=== PATIENT | male | born 1955 | race African-American/Black ===

== ENCOUNTER 2022-04-19 09:08 | Inpatient (IN) | payer MEDICAID, OTHER ==
[~2022-04-19] VITALS: Ht 175.3 cm; Wt 130.0 kg
[2022-04-19] MEDS ORDERED: ACETAMINOPHEN 325 MG TAB PO ONE (09:30)
[2022-04-19] MEDS ORDERED: cefTRIAXone SOD 500 MG VL IV ONE (09:30)
[2022-04-19] MEDS ORDERED: IPRATROPIUM BROM 0.5 MG/2.5ML INH SOL NEB ONE (09:30)
[2022-04-19] MEDS ORDERED: ALBUTEROL SULF 2.5 MG/0.5ML(0.5%) NEB SOLN NEB ONE (09:30)
[2022-04-19 10:15] LABS: Albumin 3.8 g/dL (3.4-5.0); Calcium 9.1 mg/dL (8.5-10.1); Potassium 3.8 mmol/L (3.5-5.1)
[2022-04-19 10:18] LABS: BUN/Creatinine Ratio 10.5; Bilirubin, Total 0.5 mg/dL (0.2-1.0)
[2022-04-19 10:23] LABS: Basophils # (auto) 0.1 10 ^3/uL (0-0.2); Basophils % (auto) 0.5 % (0.0-2.0); Eosinophils # (auto) 0 10 ^3/uL (0-0.8); Hematocrit 50.3 % (41.0-53.0); Hemoglobin 16.3 g/dL (13.5-17.5); INR 1.01 (0.9-1.15); Lymphocytes # (auto) 1.5 10 ^3/uL (0.4-5.4); Lymphocytes % (auto) 14.1 % (10.0-50.0); Mean Corpuscular Hemoglobin 28.4 pg (28.0-32.0); Mean Corpuscular Hgb Conc. 32.4 g/dL (32.0-36.0); Mean Corpuscular Volume 87.4 fL (80.0-100.0); Monocytes # (auto) 1.7 10 ^3/uL (0-1.3); Monocytes % (auto) 16.3 % (0.0-12.0); Neutrophils # (auto) 7.1 10 ^3/uL (1.6-8.6); Neutrophils % (auto) 69.1 % (37.0-80.0); Nucleated Red Blood Cells % 0.3 %; Red Blood Cells 5.76 10^6/uL (4.5-5.90); Red Cell Distribution Width 15.3 % (11.8-14.3); White Blood Cell 10.3 10^3/uL (4.4-10.8)
[2022-04-19] MEDS ORDERED: CEFTRIAXONE SODIUM 2 GM in D5W 5% 50 ML IV ONE (11:30)
[2022-04-19] MEDS ORDERED: ASPI-325 PO (21:22)
[2022-04-19] MEDS ORDERED: METO-289 PO (21:22)
[2022-04-19] MEDS ORDERED: LURA40TA PO (21:22)
[2022-04-19] MEDS ORDERED: FUR20T PO (21:22)
[2022-04-19] MEDS ORDERED: GABA400C11 PO (21:22)
[2022-04-19] MEDS ORDERED: TAMS0.4C36 PO (21:22)
[2022-04-19] MEDS ORDERED: TRAZ100T3 PO (21:22)
[2022-04-19] MEDS ORDERED: ONDANSETRON HCL 4 MG/2 ML VIAL IV PRN (21:30)
[2022-04-19] MEDS ORDERED: MORPHINE SULFATE INJ 2 MG/ml SYRG IV PRN (21:30)
[2022-04-19] MEDS ORDERED: NITROGLYCERIN 0.4 MG SL TAB SL PRN (21:30)
[2022-04-19] MEDS ORDERED: DOCUSATE SOD 100 MG CAP PO PRN (21:30)
[2022-04-19] MEDS: GABAPENTIN 400 MG CAP PO SCH (22:22)
[2022-04-19] MEDS ORDERED: SODIUM CHLORIDE 0.9% 1,000 ML IV ONE (22:45)
[2022-04-19 23:07] VITALS: BP 137/80
[2022-04-20 00:27] VITALS: BP 161/108
[2022-04-20] MEDS: hydrALAZINE HCL 20 MG/ML VL IV PRN ×2 (01:25→18:16)
[2022-04-20] MEDS: traZODone HCL 50 MG TAB PO PRN (02:04)
[2022-04-20] MEDS ORDERED: amLODIPine BESYLATE 5 MG TAB PO ONE (04:45)
[2022-04-20 05:54] LABS: Basophils # (auto) 0 10 ^3/uL (0-0.2); Basophils % (auto) 0.4 % (0.0-2.0); Eosinophils # (auto) 0 10 ^3/uL (0-0.8); Eosinophils % (auto) 0.1 % (0.0-7.0); Hematocrit 50.1 % (41.0-53.0); Hemoglobin 16.4 g/dL (13.5-17.5); Lymphocytes # (auto) 2.3 10 ^3/uL (0.4-5.4); Lymphocytes % (auto) 20.3 % (10.0-50.0); Mean Corpuscular Hemoglobin 28.4 pg (28.0-32.0); Mean Corpuscular Hgb Conc. 32.7 g/dL (32.0-36.0); Monocytes # (auto) 2.1 10 ^3/uL (0-1.3); Monocytes % (auto) 17.9 % (0.0-12.0); Neutrophils % (auto) 61.3 % (37.0-80.0); Nucleated Red Blood Cells % 0.3 %; Red Blood Cells 5.76 10^6/uL (4.5-5.90); Red Cell Distribution Width 15.5 % (11.8-14.3); White Blood Cell 11.5 10^3/uL (4.4-10.8)
[2022-04-20] MEDS ORDERED: ALBUTEROL SULF 2.5 MG/0.5ML(0.5%) NEB SOLN NEB SCH (06:00)
[2022-04-20] MEDS ORDERED: IPRATROPIUM BROM 0.5 MG/2.5ML INH SOL NEB SCH (06:00)
[2022-04-20 06:09] LABS: Potassium 3.9 mmol/L (3.5-5.1)
[2022-04-20] MEDS: GABAPENTIN 400 MG CAP PO SCH ×3 (06:09→21:35)
[2022-04-20 06:13] LABS: Albumin 3.6 g/dL (3.4-5.0); BUN/Creatinine Ratio 10.3; Calcium 9.2 mg/dL (8.5-10.1)
[2022-04-20 06:16] LABS: Bilirubin, Total 0.6 mg/dL (0.2-1.0); Total Protein 7.8 g/dL (6.4-8.2)
[2022-04-20] MEDS: cloNIDine HCL 0.1 MG TAB PO PRN ×2 (06:45→16:55)
[2022-04-20] MEDS: methylPREDNISolone SOD SUCC 40 MG/ML VL IV SCH ×2 (08:44→21:35)
[2022-04-20] MEDS: PANTOPRAZOLE 40 MG/10 ML VIAL INJ IV SCH (08:44)
[2022-04-20] MEDS: cefTRIAXone 1GM/50ML D5W 50 ML IV SCH (08:44)
[2022-04-20] MEDS: ACETAMINOPHEN 325 MG TAB PO PRN (08:45)
[2022-04-20] MEDS: FUROSEMIDE 20 MG TAB PO SCH (08:46)
[2022-04-20] MEDS: amLODIPine BESYLATE 5 MG TAB PO SCH (08:46)
[2022-04-20] MEDS: METOPROLOL SUCCINATE XL 50 MG TAB PO SCH (08:46)
[2022-04-20 09:00] VITALS: BP 155/103
[2022-04-20] MEDS: ASPirin-EC 81 mg tab PO SCH (09:42)
[2022-04-20] MEDS: LURASIDONE PO SCH (10:00)
[2022-04-20] MEDS: [UNRECOGNIZED DRUG - OTHER] PO SCH (10:00)
[2022-04-20 13:00] VITALS: BP 142/94
[2022-04-20] MEDS: ALBUTEROL SULF 2.5 MG/0.5ML(0.5%) NEB SOLN NEB SCH ×3 (14:00→22:28)
[2022-04-20] MEDS: IPRATROPIUM BROM 0.5 MG/2.5ML INH SOL NEB SCH ×3 (14:00→22:28)
[2022-04-20] MEDS ORDERED: MAGNESIUM SULFATE 1GM/100ML 100 ML IV ONE (14:00)
[2022-04-20] MEDS: TAMSULOSIN HYDROCHLORIDE 0.4 MG CAP PO SCH (16:58)
[2022-04-20 17:00] VITALS: BP 166/103
[2022-04-20 22:00] VITALS: BP 149/79
[2022-04-21] MEDS: HYDROcodone-ACET 5/325MG TAB PO PRN ×3 (02:36→23:23)
[2022-04-21 05:00] VITALS: BP 113/78
[2022-04-21] MEDS: GABAPENTIN 400 MG CAP PO SCH ×3 (05:27→22:15)
[2022-04-21] MEDS: ALBUTEROL SULF 2.5 MG/0.5ML(0.5%) NEB SOLN NEB SCH ×5 (06:08→21:39)
[2022-04-21] MEDS: IPRATROPIUM BROM 0.5 MG/2.5ML INH SOL NEB SCH ×5 (06:09→21:39)
[2022-04-21 07:22] LABS: Basophils # (auto) 0 10 ^3/uL (0-0.2); Basophils % (auto) 0.4 % (0.0-2.0); Eosinophils # (auto) 0 10 ^3/uL (0-0.8); Hematocrit 48.3 % (41.0-53.0); Hemoglobin 15.6 g/dL (13.5-17.5); Lymphocytes # (auto) 1.9 10 ^3/uL (0.4-5.4); Lymphocytes % (auto) 20.4 % (10.0-50.0); Mean Corpuscular Hemoglobin 28.2 pg (28.0-32.0); Mean Corpuscular Hgb Conc. 32.3 g/dL (32.0-36.0); Mean Corpuscular Volume 87.3 fL (80.0-100.0); Monocytes # (auto) 0.7 10 ^3/uL (0-1.3); Monocytes % (auto) 7.4 % (0.0-12.0); Neutrophils # (auto) 6.7 10 ^3/uL (1.6-8.6); Neutrophils % (auto) 71.8 % (37.0-80.0); Red Blood Cells 5.54 10^6/uL (4.5-5.90); Red Cell Distribution Width 15.1 % (11.8-14.3); White Blood Cell 9.4 10^3/uL (4.4-10.8)
[2022-04-21 08:05] LABS: Calcium 9.3 mg/dL (8.5-10.1); Potassium 4.5 mmol/L (3.5-5.1)
[2022-04-21 09:00] VITALS: BP 153/92
[2022-04-21] MEDS: LURASIDONE PO SCH (10:00)
[2022-04-21] MEDS: [UNRECOGNIZED DRUG - OTHER] PO SCH (10:00)
[2022-04-21] MEDS: METOPROLOL SUCCINATE XL 50 MG TAB PO SCH (10:31)
[2022-04-21] MEDS: amLODIPine BESYLATE 5 MG TAB PO SCH (10:32)
[2022-04-21] MEDS: cefTRIAXone 1GM/50ML D5W 50 ML IV SCH (10:32)
[2022-04-21] MEDS: PANTOPRAZOLE 40 MG/10 ML VIAL INJ IV SCH (10:32)
[2022-04-21] MEDS: FUROSEMIDE 20 MG TAB PO SCH (10:32)
[2022-04-21] MEDS: methylPREDNISolone SOD SUCC 40 MG/ML VL IV SCH ×2 (10:33→22:14)
[2022-04-21] MEDS: ASPirin-EC 81 mg tab PO SCH (10:45)
[2022-04-21] MEDS ORDERED: METF-370 PO (10:47)
[2022-04-21 13:00] VITALS: BP 151/94
[2022-04-21] MEDS: SODIUM CHLORIDE 0.9% 1,000 ML IV SCH (16:44)
[2022-04-21 17:00] VITALS: BP 145/93
[2022-04-21] MEDS: TAMSULOSIN HYDROCHLORIDE 0.4 MG CAP PO SCH (17:11)
[2022-04-21] MEDS ORDERED: ALBUTEROL MEDNEB 2.5 mg/3ml NEB ONE ×2 (18:01→21:36)
[2022-04-21 22:00] VITALS: BP 156/93
[2022-04-21] MEDS: traZODone HCL 50 MG TAB PO PRN (22:24)
[2022-04-22 05:04] VITALS: BP 168/101
[2022-04-22] MEDS: SODIUM CHLORIDE 0.9% 1,000 ML IV SCH (05:25)
[2022-04-22] MEDS: GABAPENTIN 400 MG CAP PO SCH ×3 (05:28→21:21)
[2022-04-22] MEDS: cloNIDine HCL 0.1 MG TAB PO PRN ×2 (05:58→21:22)
[2022-04-22 06:06] LABS: Basophils # (auto) 0.1 10 ^3/uL (0-0.2); Basophils % (auto) 0.4 % (0.0-2.0); Eosinophils # (auto) 0 10 ^3/uL (0-0.8); Hematocrit 48.9 % (41.0-53.0); Hemoglobin 15.7 g/dL (13.5-17.5); Lymphocytes # (auto) 1.6 10 ^3/uL (0.4-5.4); Mean Corpuscular Hemoglobin 27.9 pg (28.0-32.0); Mean Corpuscular Volume 87.2 fL (80.0-100.0); Monocytes # (auto) 0.9 10 ^3/uL (0-1.3); Monocytes % (auto) 7.2 % (0.0-12.0); Neutrophils # (auto) 10.6 10 ^3/uL (1.6-8.6); Neutrophils % (auto) 80.4 % (37.0-80.0); Nucleated Red Blood Cells % 0.2 %; Red Blood Cells 5.61 10^6/uL (4.5-5.90); Red Cell Distribution Width 14.9 % (11.8-14.3); White Blood Cell 13.1 10^3/uL (4.4-10.8)
[2022-04-22] MEDS ORDERED: ALBUTEROL MEDNEB 2.5 mg/3ml NEB ONE ×5 (06:10→22:00)
[2022-04-22 06:29] LABS: Potassium 4.3 mmol/L (3.5-5.1)
[2022-04-22 06:33] LABS: BUN/Creatinine Ratio 19.2; Calcium 9.2 mg/dL (8.5-10.1)
[2022-04-22] MEDS: IPRATROPIUM BROM 0.5 MG/2.5ML INH SOL NEB SCH ×5 (06:54→22:02)
[2022-04-22] MEDS: ALBUTEROL SULF 2.5 MG/0.5ML(0.5%) NEB SOLN NEB SCH ×5 (06:54→22:02)
[2022-04-22 08:00] VITALS: BP 140/96
[2022-04-22 09:00] VITALS: BP 140/96
[2022-04-22] MEDS: cefTRIAXone 1GM/50ML D5W 50 ML IV SCH (09:30)
[2022-04-22] MEDS: ASPirin-EC 81 mg tab PO SCH (09:30)
[2022-04-22] MEDS: methylPREDNISolone SOD SUCC 40 MG/ML VL IV SCH ×2 (09:30→21:21)
[2022-04-22] MEDS: PANTOPRAZOLE 40 MG/10 ML VIAL INJ IV SCH (09:30)
[2022-04-22] MEDS: FUROSEMIDE 20 MG TAB PO SCH (09:31)
[2022-04-22] MEDS: METOPROLOL SUCCINATE XL 50 MG TAB PO SCH (09:31)
[2022-04-22] MEDS: amLODIPine BESYLATE 5 MG TAB PO SCH (09:32)
[2022-04-22] MEDS: LURASIDONE PO SCH (10:00)
[2022-04-22] MEDS: [UNRECOGNIZED DRUG - OTHER] PO SCH (10:00)
[2022-04-22 12:41] VITALS: BP 138/78
[2022-04-22] MEDS: AZITHROMYCIN 500MG/ 250ML 250 ML IV SCH (12:57)
[2022-04-22 13:00] VITALS: BP 141/93
[2022-04-22 14:48] LABS: Hepatitis C Antibody Negative (Negative)
[2022-04-22 17:00] VITALS: BP 147/99
[2022-04-22] MEDS: TAMSULOSIN HYDROCHLORIDE 0.4 MG CAP PO SCH (17:55)
[2022-04-22] MEDS: traZODone HCL 50 MG TAB PO PRN (22:20)
[2022-04-23 04:42] VITALS: BP 155/91
[2022-04-23] MEDS: hydrALAZINE HCL 20 MG/ML VL IV PRN ×2 (05:46→12:09)
[2022-04-23] MEDS: GABAPENTIN 400 MG CAP PO SCH ×2 (05:46→13:44)
[2022-04-23] MEDS ORDERED: ALBUTEROL MEDNEB 2.5 mg/3ml NEB ONE (06:14)
[2022-04-23] MEDS: ALBUTEROL SULF 2.5 MG/0.5ML(0.5%) NEB SOLN NEB SCH ×3 (07:01→14:54)
[2022-04-23] MEDS: IPRATROPIUM BROM 0.5 MG/2.5ML INH SOL NEB SCH ×3 (07:01→14:53)
[2022-04-23 09:00] VITALS: BP 150/91
[2022-04-23] MEDS: PANTOPRAZOLE 40 MG/10 ML VIAL INJ IV SCH (09:05)
[2022-04-23] MEDS: cefTRIAXone 1GM/50ML D5W 50 ML IV SCH (09:05)
[2022-04-23] MEDS: methylPREDNISolone SOD SUCC 40 MG/ML VL IV SCH (09:06)
[2022-04-23] MEDS: ASPirin-EC 81 mg tab PO SCH (09:06)
[2022-04-23] MEDS: amLODIPine BESYLATE 5 MG TAB PO SCH (09:06)
[2022-04-23] MEDS: LURASIDONE PO SCH (09:06)
[2022-04-23] MEDS: FUROSEMIDE 20 MG TAB PO SCH (09:06)
[2022-04-23] MEDS: [UNRECOGNIZED DRUG - OTHER] PO SCH (09:06)
[2022-04-23] MEDS: METOPROLOL SUCCINATE XL 50 MG TAB PO SCH (09:07)
[2022-04-23] MEDS: AZITHROMYCIN 500MG/ 250ML 250 ML IV SCH (09:35)
[2022-04-23] MEDS: ACETAMINOPHEN 325 MG TAB PO PRN (12:00)
[2022-04-23 13:00] VITALS: BP 154/93
[2022-04-23] MEDS ORDERED: PRED20TA2 PO (13:19)
[2022-04-23] MEDS ORDERED: DOXY-332 PO (13:21)
[2022-04-23 16:46] VITALS: BP 149/93
== END 2022-04-23 16:09 | disposition home health service (06) | DRG 720 ==
LOC: EDBD 09:08 → ER 09:15 → TELE 21:17 → TELE-CENTR 23:28
PROVIDERS: ADMIT Nurse Practitioner Family; ATTEND Nurse Practitioner Acute Care
DX: A41.9 Sepsis, unspecified organism (principal); J96.01 Acute respiratory failure with hypoxia; N17.9 Acute kidney failure, unspecified; J15.9 Unspecified bacterial pneumonia; I11.0 Hypertensive heart disease with heart failure; J44.0 Chronic obstructive pulmonary disease with (acute) lower respiratory infection; I50.9 Heart failure, unspecified; J45.901 Unspecified asthma with (acute) exacerbation; E11.9 Type 2 diabetes mellitus without complications; E66.01 Morbid (severe) obesity due to excess calories; F31.9 Bipolar disorder, unspecified; Z20.822 Contact with and (suspected) exposure to COVID-19; J98.11 Atelectasis; M10.9 Gout, unspecified; F41.9 Anxiety disorder, unspecified; N40.0 Benign prostatic hyperplasia without lower urinary tract symptoms; Z79.899 Other long term (current) drug therapy; Z82.49 Family history of ischemic heart disease and other diseases of the circulatory system; Z83.3 Family history of diabetes mellitus; Z90.49 Acquired absence of other specified parts of digestive tract; Z87.891 Personal history of nicotine dependence; Z68.41 Body mass index [BMI] 40.0-44.9, adult
CPT/HCPCS: 36415; 36600; 71045; 71275; 80048; 80053; 82805; 83605; 83735; 83880; 84484; 85025; 85610; 85730; 86803; 87040; 87340; 87426; 87804; 93005; 94640; 96361; 96365; C9113; G0378; J0696; J7060